=== PATIENT | female | born 1940 | race Asian ===

== ENCOUNTER 2016-05-27 09:45 | Emergency (ER) | payer MEDICARE, OTHER ==
--- NOTE | 2016-05-27 10:00 | ER Document Report ---
ED Medical Screen (RME) - General Stated Complaint: MOUTH CONCERN Mode of Arrival: Ambulatory Information source: Patient Notes: Patient complains of leg lesions in the back of her throat for the past 2 months. I have greeted and performed a rapid initial assessment of this patient. A comprehensive ED assessment and evaluation of the patient, analysis of test results and completion of the medical decision making process will be conducted by additional ED providers. Physical Exam - Vital signs Vitals: Temp Pulse Resp BP Pulse Ox 98.0 F 76 16 173/62 H 97 05/27/16 09:52 05/27/16 09:52 05/27/16 09:52 05/27/16 09:52 05/27/16 09:52 - HEENT Mouth/Lips: Other - Patient points to lesion to right posterior pharynx Course - Vital Signs Vital signs: Temp Pulse Resp BP Pulse Ox 98.0 F 76 16 173/62 H 97 05/27/16 09:52 05/27/16 09:52 05/27/16 09:52 05/27/16 09:52 05/27/16 09:52
--- NOTE | 2016-05-27 11:37 | ER Document Report ---
HPI - HPI Patient complains to provider of: white growth in back of throat Pain Level: Denies Context: Patient is a 75 year old female c/o a lesions that was on her right tonsil since march. has not changed in size, denies pain, bleeding, discharge. States she has never had anything like this before. denies dysphagia, swelling, difficulty chewing, fever, ear pain, sinus congestion Denies PMH, PSH Denies tobacco use, etoh or drug use - CARDIOVASCULAR Cardiovascular: DENIES: Chest pain - DERM Skin Color: Normal Past Medical History - General Information source: Patient - Social History Smoking Status: Former Smoker Chew tobacco use (# tins/day): No Frequency of alcohol use: None Drug Abuse: None Family History: Reviewed & Not Pertinent Patient has suicidal ideation: No Patient has homicidal ideation: No Renal/ Medical History: Denies: Hx Peritoneal Dialysis Surgical Hx: Negative - Immunizations Hx Diphtheria, Pertussis, Tetanus Vaccination: No Vertical Provider Document - CONSTITUTIONAL Agree With Documented VS: Yes Exam Limitations: No Limitations General Appearance: WD/WN, No Apparent Distress - INFECTION CONTROL TRAVEL OUTSIDE OF THE [place] IN LAST 30 DAYS: No - HEENT HEENT: Atraumatic, Normocephalic Mouth Diagram: 1 - Patient pointed to this area as the site of her compliant. there is evidence of a mild depression but no evidence of white lesion. Patient states she does not see it now either but it wsa there this morning - NECK Neck: Normal Inspection, Supple, Thyroid Normal. negative: Lymphadenopathy-Left , Lymphadenopathy-Right - RESPIRATORY Respiratory: Breath Sounds Normal, No Respiratory Distress, Chest Non-Tender. negative: Rales, Rhonchi, Wheezing O2 Sat by Pulse Oximetry: 97 - CARDIOVASCULAR Cardiovascular: Regular Rate, Regular Rhythm, No Murmur Pulses: Normal: Radial - NEURO Level of Consciousness: Awake, Alert, Appropriate Motor/Sensory: No Motor Deficit, No Sensory Deficit - DERM Integumentary: Warm, Dry, No Rash Course - Re-evaluation Re-evalutation: 05/27/16 11:37 PE did not reveal any evidence of her complaint. I had the patient look in a mirror to point out her concern but she said that it was gone. Given that there was a depression in her tonsil, I suspect her area of concern could have been a tonsil stone. There is no current evidence of thrush, leukoplakia, peridontal abscess, peritonsilar abscess, retropharyngeal abscess. Patient is HDS and NAD, afebrile. Will d/c home with instruction to follow up with dentist and primary care given elevated BP for follow up. - Vital Signs Vital signs: Temp Pulse Resp BP Pulse Ox 98.0 F 76 16 173/62 H 97 05/27/16 09:52 05/27/16 09:52 05/27/16 11:00 05/27/16 09:52 05/27/16 09:52 Discharge - Discharge Clinical Impression: Tonsil symptom, Elevated blood pressure reading Condition: Good Disposition: HOME, SELF-CARE Additional Instructions: -Please follow up with a primary care provider regarding your concern today. -Your blood pressure was elevated today. It is indicated for you to follow up with our [facility] for a check up regarding your blood pressure. Forms: Elevated Blood Pressure Referrals: [facility] [NO LOCAL MD] - Follow up as needed
[2016-05-27 11:55] VITALS: BP 162/63
== END 2016-05-27 11:45 | disposition home or self-care (01) ==
LOC: ER 09:45
DX: J35.9 Chronic disease of tonsils and adenoids, unspecified (principal); R03.0 Elevated blood-pressure reading, without diagnosis of hypertension; Z87.891 Personal history of nicotine dependence
CPT/HCPCS: 99282